=== PATIENT | male | born 1945 | race Caucasian/White ===

== ENCOUNTER 2017-02-21 14:55 | Inpatient (IN) | payer MEDICARE, OTHER ==
[~2017-02-21] VITALS: Ht 170.2 cm; Wt 99.3 kg
[2017-03-04] MEDS ORDERED: METF-382 PO (15:17)
[2017-03-04] MEDS ORDERED: LOSA100T PO (15:17)
[2017-03-04] MEDS ORDERED: CARV12.52 PO (15:17)
[2017-03-04] MEDS ORDERED: AMLO10TA2 PO (15:17)
[2017-03-04] MEDS ORDERED: CHLOR50 PO (15:17)
[2017-03-04] MEDS ORDERED: BUPR100CR PO (15:20)
[2017-03-04] MEDS ORDERED: SYMB80AE INH (15:20)
[2017-03-04] MEDS ORDERED: IPRAAER INH (15:21)
[2017-03-04] MEDS ORDERED: ASPI81TA81 PO (15:28)
[2017-03-04] MEDS ORDERED: TAMS0.4C4 PO (15:28)
[2017-03-04] MEDS ORDERED: CYAN25005 SL (15:28)
[2017-03-04] MEDS ORDERED: MAGN400T PO (15:28)
[2017-03-04] MEDS ORDERED: MULT1TAB46 PO (15:28)
[2017-03-04] MEDS ORDERED: RANI150T PO (15:28)
[2017-03-04] MEDS ORDERED: FLUT50SP EACH NARE (15:28)
[2017-03-04] MEDS ORDERED: VITATAB11 PO (15:28)
[2017-03-04] MEDS ORDERED: OMEP20TA PO (15:28)
--- NOTE | 2017-03-22 08:23 | MH ---
cc: VERONIKA SPARKS M.D. DATE OF ADMISSION 03/22/2017 ADMISSION DIAGNOSIS Lumbar spinal stenosis with instability. HISTORY This patient is a 71-year-old male with significant back pain and radiating leg pain. Investigative studies shows evidence of a high-grade stenosis L3-4, L4-5 associated with a moderate instability at the L3-4 and L4-5 level. Despite conservative care, the patient is painful and symptomatic. He presents for surgical treatment. PAST MEDICAL HISTORY, SOCIAL HISTORY AND FAMILY HISTORY See attached notes. PHYSICAL EXAMINATION This is a 71-year-old male in moderate distress with his back, hip and leg. HEENT: Normocephalic, atraumatic. Pupils equal, round, reactive to light and accommodation. Extraocular motions intact. NECK: Supple. CHEST: Clear. HEART: Regular rate and rhythm. ABDOMEN: Soft and nontender with normoactive bowel sounds. MUSCULOSKELETAL: The thoracolumbar spine has a restricted motion and pain with range of motion. [id number] is positive. Motor examination see attached records. IMPRESSION 1. Lumbar spinal stenosis L3-4 and L4-5. 2. Lumbar instability L3-4 and L4-5. 3. Bilateral lumbosacral radiculopathy. PLAN Bilateral lumbar laminectomy L3-L4 and L4-5 from the left, subtotal facet resection, posterior spinal fusion, posterior spinal segmental instrumentation, posterolateral interbody fusion, interbody cages. CONSENT The risks of surgery including infection, bleeding, loss of motion, continued pain, need for further surgery, neurologic and vascular injury. The patient understands these issues and wishes to press on with surgery as outlined above. MD VIDA Simons/NORM /10:49 PM /8:20 AM
[2017-03-22] MEDS ORDERED: VANCOMYCIN HCL 1000 MG VIAL ONE (09:24)
[2017-03-22] MEDS ORDERED: SODIUM CHLOR 0.9% 250 ML INJ 250 ML ONE (09:24)
[2017-03-22] MEDS ORDERED: METOPROLOL TARTRATE 25 MG TAB PO PRN (09:30)
[2017-03-22] MEDS ORDERED: SODIUM CHLORID 0.9% 500 ML IV PRN (09:30)
[2017-03-22] MEDS ORDERED: LACTATED RINGER'S 1000 ML IV PRN (09:30)
[2017-03-22] MEDS ORDERED: INSULIN HUMAN REGULAR 1,000 UNITS/10 ML VIAL SQ PRN (09:30)
[2017-03-22] MEDS ORDERED: POVIDONE IODINE 5% (ANTISEPSIS KIT) 4 APPLICATIONS EACH NARE PRN (09:30)
[2017-03-22] MEDS ORDERED: CHLORHEXIDINE GLUCONATE 2 % 1 PACK (2 CLOTHS) TOPICAL PRN (09:30)
[2017-03-22 09:31] VITALS: BP 97/58; PULSE 64; RESP 20; TEMP 97.7; O2SAT 99
[2017-03-22] MEDS ORDERED: VANCOMYCIN 1000 MG/NS 250 ML (for <70 kg) IV SCH ×2 (09:45)
[2017-03-22] MEDS ORDERED: POVIDONE IODINE 7.5% SCRUB 118 ML BOTTLE TOPICAL SCH (09:45)
[2017-03-22] MEDS ORDERED: MIDAZOLAM HCL 2 MG/2 ML VIAL ONE (10:38)
[2017-03-22] MEDS ORDERED: ACETAMINOPHEN 1000 MG/100 ML VIAL IV ONE (10:38)
[2017-03-22] MEDS ORDERED: fentaNYL CITRATE 250 MCG/5 ML AMP ONE ×2 (10:39→17:48)
[2017-03-22] MEDS ORDERED: GENTAMICIN SULFATE 80 MG/2 ML VIAL ONE (10:42)
[2017-03-22] MEDS: ceFAZolin 2 GM PREMIX 50 ML IV SCH ×2 (12:53→16:50)
--- NOTE | 2017-03-22 17:28 | RADRPT ---
EXAM DATE/TIME: 03/22/2017 16:52 [place] COMPARISON: No previous studies available for comparison. INDICATIONS : Laminectomy. Fusion of L3-L5. MEDICAL HISTORY : None. SURGICAL HISTORY : None. ENCOUNTER: Initial ACUITY: 1 day PAIN SCORE: Non-responsive. LOCATION: Lumbar spine. FINDINGS: Lower lumbar spine fusion hardware is noted from L3 through L5 and appears to be in good position. CONCLUSION: Status post lower lumbar spine fusion from L3 through L5. Arden Shore MD on March 22, 2017 at 17:22 Board Certified Radiologist. This report was verified electronically.
[2017-03-22] MEDS ORDERED: DEXTROSE 50% IN WATER 50 ML VIAL(D50) IV PRN (17:30)
[2017-03-22] MEDS ORDERED: ONDANSETRON HCL 4 MG/2 ML VIAL IV PRN (17:30)
[2017-03-22] MEDS ORDERED: ALUMINUM/MAGNESIUM/SIMETH 30 ML CUP PO PRN (17:30)
[2017-03-22] MEDS ORDERED: MORPHINE SULFATE 30 MG/30 ML PCA IV SCH (17:30)
[2017-03-22] MEDS ORDERED: BISACODYL 10 MG SUPP RECTAL PRN (17:30)
[2017-03-22] MEDS ORDERED: NALOXONE HCL 0.4 MG/ML AMP IV PRN (17:30)
[2017-03-22] MEDS ORDERED: GLUCAGON 1 MG/ML VIAL IM/SQ PRN (17:30)
[2017-03-22] MEDS ORDERED: Post-op Orders (for Pharmacy) MISC XX ONE (17:30)
[2017-03-22] MEDS ORDERED: SODIUM CHLORIDE 0.9% FLUSH 5 ML FLUSH IVF PRN (17:30)
[2017-03-22] MEDS ORDERED: MORPHINE SULFATE 8 MG/ML INJ IV PUSH PRN (17:30)
[2017-03-22] MEDS ORDERED: ACETAMINOPHEN/HYDROcodone 325 MG/7.5 MG TAB PO PRN (17:30)
[2017-03-22] MEDS ORDERED: SOD PHOSPHATE/SOD BIPHOSPHATE (ADULT) ENEMA 133ML PR PRN (17:30)
--- NOTE | 2017-03-22 17:31 | PD.OP ---
cc: Nicolas Thompson MD Operative Report Date of Surgery: Mar 22, 2017 Preoperative Diagnosis: Lumbar spinal stenosis L3 4 and L4 5. Spondylolisthesis, L4 5, grade 1. Retrolisthesis L3 4, grade 1. 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 Lumbar radiculitis Postoperative Diagnosis: Same Procedure: Bilateral lumbar laminectomy from the left L3, L4 with lateral recess decompression and left subtotal facet resection. Bilateral lumbar laminectomy from the left L4, L5 with lateral recess decompression and subtotal facet resection L4 5 left. Total discectomy L3 4 and L4 5. Posterior spinal fusion L3 to L5. Posterior lateral interbody fusion L34 and L4 5. Placement of interbody cages L3 4 and L4 5. Posterior spinal segmental instrumentation L3 to L5. Major bone grafting of the lumbar spine Anesthesia: Gen. Surgeon: Nicolas Thompson Cloth Finishing Range Operator(s): JAZZY Pond Operation and Findings: EBL: 200 ml NOTE: Kenyatta Pond PA-C was present for the entire surgical procedure as my assistant superintendent for curriculum. In my medical opinion her skill and care was necessary for proper management of this patient INDICATIONS: This patient is a 71-year-old white male with neurologic claudication and evidence of severe discogenic low back pain related to severe discogenic changes L3 4 and a spondylolisthesis at L4 5. The patient has had exhaustive care for over 2 years. He has had conservative care including medications, braces, physical therapy, multiple injections. Despite conservative care the patient is painful and symptomatic. He now presents for surgical treatment. INSTRUMENTATION: Spine ada, Casper Ana PROCEDURE: The patient brought to the operating room and anesthetized the supine position. The patient positioned prone on the Jered frame on the Faisal table. All pressure points are protected. The back was scrubbed with alcohol followed by Hibiclens followed by ChloraPrep and draped sterilely and antibiotics were given within a routine time window. A timeout was done. Lateral radiographic images used to identify the proper level for the procedure. Compared care for the preoperative studies. Skin markings were made anticipating surgical treatment. A left paramedian incision was made. The lamina and facet joint was exposed. We used a dilating retractor which was positioned over this region. The L3 4 level was approached first. The microscope was rolled into the field for visualization. A high-speed bur was used to take the lamina down and doing a subtotal facet resection. The exiting and crossing nerve roots were completely decompressed. A total discectomy was accomplished. The disc space was prepared. All cartilaginous material from the disc space was removed. A combination of demineralized bone matrix and Nucel stem cells were mixed together on the back table.. These were injected into the disc space. The cage was then placed according to nuclear spectroscopist's recommendation and deployed. Position was satisfactory. Additional bone graft was placed into the disc space. We moved to the L4 5 level. A paramedian incision was made and a midline fascial incision was made. A dilating system was placed down to the interlaminar space and held provisionally to the side of the table. A high- speed bur under the microscope was used to perform a bilateral laminectomy from the that side. A lateral recess decompression bilaterally was accomplished. A subtotal facet resection was accomplished. The crossing and exiting nerve roots were completely decompressed. An annulotomy was performed. A total discectomy was accomplished. All of the disc was removed from the disc space. The disc was then prepared for a cage. The bone graft was placed into the disc space between the operative level. A Stax cage placed close to midline at that level. There was no complication. The alignment was satisfactory. No significant bleeding was encountered. The wound was irrigated copiously. The fascia was closed with interrupted 0 Vicryl suture. The outer edge of the facet joint was identified and prepared. Under fluoroscopic images, a bur was used to gain entrance into the pedicle followed by placement of a blunt probe, an awl and placement of proper length screws. Each screw was charged with electric current there are no abnormal potentials registered in either lower extremity. A proper length armida was fitted and attached and tightened according to nuclear spectroscopist's recommendation. We used the dynamic nature of this system to allow reduction of the spondylolisthesis with normal contouring and alignment of the lumbar spine. The wound was irrigated copiously. Bone grafting was placed along the lateral gutter in the region of the transverse process across this level. This was closed in layers with #1 Vicryl, 2-0 Vicryl and running intradermal 3-0 Vicryl followed by Steri-Strips and benzoin. On the contralateral side a separate exposure was made. The outer edge of the facet joints were identified. A bur was used to gain entrance into the pedicle followed by placement of a probe and proper length screws. Each screw was charged with electric current and no abnormal potentials registered in either lower extremity. The wound was irrigated copiously. Bone graft placed along the transverse process across this level. It was closed in layers using #1 Vicryl, 2-0 Vicryl and running intradermal 3-0 Vicryl followed by Steri-Strips and benzoin. Intraoperative radiographs were obtained. No complication was appreciated. The patient had a sterile dressing applied. The patient was awakened and taken to recovery room in satisfactory condition. FINDINGS: There was a high-grade stenosis at both levels. There was a significant left-sided foraminal stenosis worse at L3 4 and L4 5. Able to obtain satisfactory alignment and reconstruction the spine. There was no comp location that was appreciated. Nicolas Thompson MD Mar 22, 2017 17:30
[2017-03-22] MEDS ORDERED: HYDR-3288 PO (17:32)
[2017-03-22] MEDS ORDERED: MORPHINE SULFATE 30 MG/30 ML PCA ONE (17:34)
[2017-03-22] MEDS ORDERED: DO NOT ADM ANY ANTICOAGULANT DRUGS PRN (17:38)
[2017-03-22] MEDS: LACTATED RINGER'S 1000 ML INJ 1,000 ML IV SCH (17:45)
[2017-03-22] MEDS: buPROPion HCL 100 MG SUSTAINED RELEASE TAB PO SCH (18:00)
[2017-03-22] MEDS ORDERED: NON-FORMULARY DRUG (Ipratropium-Albuterol Inh (Combivent Respimat Inh) 1 PUFF) INH SCH (18:00)
[2017-03-22] MEDS ORDERED: *morphine SULFATE 8 MG/ML PERIprocedure ONLY ONE (18:07)
[2017-03-22] MEDS: CARVEDILOL 12.5 MG TAB PO SCH (20:31)
[2017-03-22] MEDS: INSULIN NovoLIN REGULAR SUPPLEMENTAL SCALE SQ SCH (20:31)
[2017-03-22] MEDS: SODIUM CHLORIDE 0.9% FLUSH 5 ML FLUSH IVF SCH (20:56)
[2017-03-22] MEDS: ALBUTEROL SULFATE 90 MCG/ACT HFA 18 GM INHALER INH SCH (20:56)
[2017-03-22] MEDS: BUDESONIDE-FORMOTEROL 80/4.5 MCG INHALER INH SCH (20:56)
[2017-03-22] MEDS: TAMSULOSIN HCL 0.4 MG CAP PO SCH (20:57)
[2017-03-22] MEDS: metFORMIN HCL 500 MG TAB PO SCH (20:57)
[2017-03-22] MEDS: FAMOTIDINE 20 MG TAB PO SCH (20:57)
[2017-03-22] MEDS ORDERED: ZOLPIDEM TARTRATE 5 MG TAB PO PRN (21:00)
[2017-03-22 21:30] VITALS: BP 123/64; PULSE 67; RESP 17; TEMP 96.5; O2SAT 98
[2017-03-22] MEDS: PCA - TOTAL MG MORPHINE DELIVERED PER SHIFT SCH (22:00)
[2017-03-23 04:30] VITALS: BP 123/66; PULSE 70; RESP 17; TEMP 97.9; O2SAT 100
[2017-03-23] MEDS: PCA - TOTAL MG MORPHINE DELIVERED PER SHIFT SCH (06:00)
[2017-03-23] MEDS: LACTATED RINGER'S 1000 ML INJ 1,000 ML IV SCH ×2 (06:30→17:01)
[2017-03-23] MEDS: INSULIN NovoLIN REGULAR SUPPLEMENTAL SCALE SQ SCH ×4 (06:51→20:28)
[2017-03-23 08:00] VITALS: BP 111/60; PULSE 75; RESP 20; TEMP 98.7; O2SAT 97
[2017-03-23] MEDS ORDERED: Chlorthalidone 50 MG PO SCH (09:00)
[2017-03-23] MEDS: SODIUM CHLORIDE 0.9% FLUSH 5 ML FLUSH IVF SCH ×2 (09:00→20:23)
[2017-03-23] MEDS: CARVEDILOL 12.5 MG TAB PO SCH ×2 (09:56→20:23)
[2017-03-23] MEDS: PANTOPRAZOLE SOD 20 MG DELAYED RELEASE TAB PO SCH (09:57)
[2017-03-23] MEDS: buPROPion HCL 100 MG SUSTAINED RELEASE TAB PO SCH ×3 (09:57→16:50)
[2017-03-23] MEDS: LOSARTAN 50 MG TAB PO SCH (09:57)
[2017-03-23] MEDS: metFORMIN HCL 500 MG TAB PO SCH ×2 (09:57→20:23)
[2017-03-23] MEDS: amLODIPine BESYLATE 5 MG TAB PO SCH (09:57)
[2017-03-23] MEDS: ACETAMINOPHEN/HYDROcodone 325 MG/7.5 MG TAB PO PRN ×3 (09:59→18:52)
[2017-03-23] MEDS: TIOTROPIUM BROMIDE 18 MCG INH INH SCH (11:44)
[2017-03-23] MEDS: BUDESONIDE-FORMOTEROL 80/4.5 MCG INHALER INH SCH ×2 (11:44→20:21)
[2017-03-23] MEDS: ALBUTEROL SULFATE 90 MCG/ACT HFA 18 GM INHALER INH SCH ×4 (11:44→20:23)
[2017-03-23 12:00] VITALS: BP 139/73; PULSE 88; RESP 20; TEMP 97.7; O2SAT 96
[2017-03-23 12:55] LABS: HEMATOCRIT 33.6 % (39.0-51.0); REVIEW FLAG FINAL
--- NOTE | 2017-03-23 13:12 | HHI.DCPOC ---
Discharge Care Plan Diagnosis: (1) Lumbar spinal stenosis (2) Lumbar spine instability (3) Degeneration of intervertebral disc of lumbar region Your Health Problems Are: Incision/Drains Swelling Goals to Promote Your Health * To prevent worsening of your condition and complications * To maintain your health at the optimal level Directions to Meet Your Goals Take your medications as prescribed Follow your dietary instruction Follow activity as directed Keep your appointments as scheduled Take your immunizations and boosters as scheduled If your symptoms worsen call your PCP, if no PCP go to Urgent Care Center or Emergency Room Smoking is Dangerous to Your Health. Avoid second hand smoke Call the 24-hour hour crisis hotline for domestic abuse at Camelia Beverly Mar 23, 2017 13:12
--- NOTE | 2017-03-23 13:12 | HHI.FF ---
Face to Face Verification Diagnosis: (1) Lumbar spine instability (2) Lumbar spinal stenosis (3) Degeneration of intervertebral disc of lumbar region Physical Therapy Gait training, Safety evaluation, Transfer training, bed to chair S/P Spinal Fusion: Gait training with walker, Weight bearing as tolerated, No twisting of torso, No bending Additional Instructions PT 4 days/wk for 1 week. WBAT. out of bed with walker. Gait training. Nursing RN Days per Week: 4 x Week(s): 1 Dressing Changes: Daily dressing change, 4x4s, Coverderm/Primapore Additional Instructions Dry dressing changes daily, alcohol and coverderm. Ok to shower pod#6 if clean and dry. Wait 48 hours if still draining. I have [facility]. My clinical findings support the need for the requested home health care services because: Limited ability to care for self High risk of falls I certify that my clinical findings support that this patient is homebound because: Post-op weakness Unsteady gait/balance Camelia Beverly Mar 23, 2017 13:12
--- NOTE | 2017-03-23 13:15 | PD.ORT.PN ---
Subjective Subjective Remarks Laying in bed but states he is 'doing fine'. He has low back pain and struggles with transitioning in and out of bed. He was able to walk once he got up with the walker. he denies any new leg pain. No CP or SOB. Urinating well. Objective Vitals Vital Signs Date Time Temp Pulse Resp B/P Pulse Ox O2 Delivery O2 Flow Rate FiO2 03/23/17 12:00 97.7 88 20 139/73 96 03/23/17 08:00 98.7 75 20 111/60 97 03/23/17 04:30 97.9 70 17 123/66 100 03/22/17 21:30 96.5 67 17 123/64 98 03/22/17 21:18 Nasal Cannula 2.00 03/22/17 20:57 66 12 99/48 100 Nasal Cannula 2 03/22/17 19:00 67 12 106/55 98 Nasal Cannula 2 03/22/17 18:30 67 12 107/52 96 Nasal Cannula 2 03/22/17 18:15 67 12 105/53 98 Nasal Cannula 2 03/22/17 18:00 67 12 95/50 97 Nasal Cannula 2 03/22/17 17:45 67 15 112/59 97 Nasal Cannula 2 03/22/17 17:45 15 03/22/17 17:40 97.5 70 14 120/56 98 Nasal Cannula 2 I/O 03/22/17 03/22/17 03/22/17 03/23/17 03/23/17 03/23/17 07:00 15:00 23:00 07:00 15:00 23:00 Intake Total 2903 ml 935 ml Output Total 1025 ml 1200 ml Balance 1878 ml -265 ml Intake Oral 460 ml 240 ml IV Total 1193 ml 695 ml Other 1250 ml Output Urine Total 825 ml 1200 ml Estimated Blood Loss 200 ml # Voids 1 0 # Bowel Movements 0 0 Result Diagram: 03/23/17 1145 Objective Remarks Laying in bed at bedside NAD VSS L/S Dressing c/d/i, mild SS drainage, mild spasms, mild warmth, no erythema +motor at / ehl bilat, +sens, +nvi Neg homans bilat Assessment & Plan Ortho Post Op Day #: 1 Problem List: Assessment and Plan pod#1 s/p Lami/Fusion L3-L5 Ortho stable. Doing well. Pain controlled. concerned about d/c home today due to struggle w transitions. PO pain meds as needed. Dry dressing changes daily. Ice low back. OOB w brace for 10-12 weeks. Likely will d/c home tomorrow. F2F written. Pt states he already has DME. Camelia Beverly Mar 23, 2017 13:14
[2017-03-23 16:57] VITALS: BP 105/64; PULSE 71; RESP 20; TEMP 98.7; O2SAT 98
[2017-03-23 19:00] VITALS: BP 117/48; PULSE 74; RESP 16; TEMP 99; O2SAT 98
[2017-03-23] MEDS: DOCUSATE SODIUM 100 MG CAP PO SCH (20:23)
[2017-03-23] MEDS: TAMSULOSIN HCL 0.4 MG CAP PO SCH (20:23)
[2017-03-23] MEDS: FAMOTIDINE 20 MG TAB PO SCH (20:23)
[2017-03-24] VITALS: BP 122/63; PULSE 77; RESP 18; TEMP 98.5; O2SAT 96
[2017-03-24 04:00] VITALS: BP 111/62; PULSE 70; RESP 16; TEMP 98.6; O2SAT 96
[2017-03-24] MEDS: INSULIN NovoLIN REGULAR SUPPLEMENTAL SCALE SQ SCH ×2 (05:42→11:00)
[2017-03-24] MEDS: ACETAMINOPHEN/HYDROcodone 325 MG/7.5 MG TAB PO PRN ×3 (05:43→14:46)
[2017-03-24] MEDS: LACTATED RINGER'S 1000 ML INJ 1,000 ML IV SCH (07:30)
[2017-03-24 08:00] VITALS: BP 113/59; PULSE 70; RESP 18; TEMP 99.1; O2SAT 95
--- NOTE | 2017-03-24 08:37 | HHI.DS ---
Discharge Summary Admission Date Mar 22, 2017 at 08:28 Discharge Date: Mar 24, 2017 Admitting Diagnosis see below Diagnosis: (1) Lumbar spinal stenosis Diagnosis: Principal (2) Lumbar spine instability Diagnosis: Principal (3) Degeneration of intervertebral disc of lumbar region Diagnosis: Principal Procedures Lumbar laminectomy L34, L45; Posterior lumbar fusion with segmental instrumentation and interbody cages L3-L5, bone graft. Brief History This is a 71 year old male patient with a history of mild low back pain for many years but severe low back pain for the last 2 years. He sought out medical treatment. He was referred to physical therapy but did not improve. He was eventually referred to pain management and underwent multiple epidural steroid injections of his lumbar spine. Over time he was able to get less and less relief even when utilizing his back brace. Updated imaging studies were performed. He was found to have spinal stenosis L34 and L45 but also had substantial facet arthritis. Facet injections were ordered but he was only able to get temporary relief. Eventually surgical treatment was recommended in the form of lumbar laminectomy and fusion L34 and L45. He elected to proceed forward and presents at this time for the above. CBC/BMP: 03/23/17 1145 Significant Findings Laboratory Tests Test 03/23/17 11:45 Hemoglobin 11.4 GM/DL (13.0-17.0) Hematocrit 33.6 % (39.0-51.0) PE at Discharge Laying in bed at bedside NAD VSS L/S Dressing c/d/i, mild SS drainage, mild spasms, mild warmth, no erythema +motor at / ehl bilat, +sens, +nvi Neg homans bilat Hospital Course Surgical treatment was performed on the day of admission without complication. He recovered well in PACU and was transferred to the orthopaedic floor. Pain was controlled with IV and oral medications. He was compliant with physical therapy and all precautions including use of his lumbar brace. After 2 days he was found to be stable and discharged home with home health care. He was instructed to continue therapy, to continue his brace for an additional 10-12 weeks and to pursue a high fiber diet for 3-5 days Pt Condition on Discharge: Stable Discharge Disposition: Disch w/ Home Health Serv Discharge Instructions Diet Instructions: Diabetic Diet, High Fiber Diet Activities You Can Perform: Weight Bearing as Oralia, See Additionl Instruction Activities to Avoid: Strenuous Activity Additional Activity Instruc.: Out of bed with brace, full-time New Medications: Hydrocodone-Acetaminophen (Touchet) 7.5-325 mg Tab 1 TAB PO Q4H PRN PAIN #50 Ref 0 TAB Continued Medications: Amlodipine (Amlodipine) 10 Mg Tab 5 MG PO DAILY Blood Pressure Management #[address] Ref [address] (Aspir-81) 81 Mg Tabdr 1 TAB PO DAILY B-Complex Vitamins (Vitamin B Complex) 1 Tab 1 TAB PO DAILY Budesonide-Formoterol Inh (Symbicort Inh) 80-4.5 Mcg/Act Aero 2 PUFF INH Q12HR Asthma Management #1 Ref 0 INHALER Carvedilol (Carvedilol) 12.5 Mg Tab 12.5 MG PO BID #60 Ref 0 TAB Chlorthalidone (Chlorthalidone) 50 Mg Tab 50 MG PO DAILY Ref 0 TAB Cyanocobalamin (Vitamin B-12) (Vitamin B12) 2,500 Mcg Tab.chew 5000 MCG SL DAILY Fluticasone Nasal Perry (Fluticasone Nasal Perry) 50 Mcg/Act Naspr 50 MCG EACH NARE BID 50 mcg/spray 2 SPRAYS EACH NARES BID Allergy Management #1 Ref 0 BOTTLE Ipratropium-Albuterol Inh (Combivent Respimat Inh) 20-100 Detention/Act Aero 1 PUFF INH QID Asthma Management #1 Ref 0 INHALER Losartan (Losartan) 100 Mg Tab 100 MG PO DAILY Blood Pressure Management #30 Ref 0 TAB Magnesium Oxide (Magnesium Oxide) 400 Mg Tab 1 TAB PO DAILY Metformin ER (Metformin ER) 1,000 Mg Mallory 1000 MG PO BID With evening meal Blood Sugar Management #30 Ref 0 TAB Multiple Vitamin (Multi Vitamin Daily) 1 Tab Tab 1 TAB PO DAILY Omeprazole (Omeprazole) 20 Mg Tab 20 MG PO DAILY #30 Ref 0 TAB Ranitidine (Ranitidine) 150 Mg Tab 150 MG PO HS Heartburn Management #30 Ref 0 TAB Tamsulosin (Tamsulosin) 0.4 Mg Cap 0.4 MG PO HS Manage Prostate Problems #30 Ref 0 CAP Camelia Beverly Mar 24, 2017 08:36
--- NOTE | 2017-03-24 08:52 | PD.ORT.PN ---
Subjective Subjective Remarks Laying in bed but doing well. Uneventful last night. No new problems. Back is still painful but meds are helping. he feels as though he is ready to go home today. he denies any new leg pain. No CP or SOB. Urinating well. Objective Vitals Vital Signs Date Time Temp Pulse Resp B/P Pulse Ox O2 Delivery O2 Flow Rate FiO2 03/24/17 04:00 98.6 70 16 111/62 96 03/24/17 00:00 98.5 77 18 122/63 96 03/23/17 19:00 99.0 74 16 117/48 98 03/23/17 16:57 98.7 71 20 105/64 98 03/23/17 12:00 97.7 88 20 139/73 96 I/O 03/23/17 03/23/17 03/23/17 03/24/17 03/24/17 03/24/17 07:00 15:00 23:00 07:00 15:00 23:00 Intake Total 935 ml 340 ml 480 ml 480 ml Output Total 1200 ml 600 ml 500 ml Balance -265 ml 340 ml -120 ml -20 ml Intake Oral 240 ml 340 ml 480 ml 480 ml IV Total 695 ml Output Urine Total 1200 ml 600 ml 500 ml # Voids 3 0 # Bowel Movements 0 0 0 0 Result Diagram: 03/23/17 1145 Procedures Lumbar laminectomy L34, L45; Posterior lumbar fusion with segmental instrumentation and interbody cages L3-L5, bone graft. Objective Remarks Laying in bed at bedside NAD VSS L/S Dressing c/d/i, mod SS drainage left incision only, mild warmth, no erythema +motor at / ehl bilat, +sens, +nvi Neg homans bilat Assessment & Plan Ortho Post Op Day #: 2 Problem List: (1) Lumbar spinal stenosis (2) Lumbar spine instability (3) Degeneration of intervertebral disc of lumbar region Assessment and Plan pod#2 s/p Lami/Fusion L3-L5 Ortho stable. Ok to d/c home today. He states Dr. Nieves already set up C. PO pain meds as needed. Dry dressing change today before d/c then daily. Ice low back. OOB w brace for 10-12 weeks. F/U in 2 weeks as scheduled. F2F written. Pt states he already has DME. Camelia Beverly Mar 24, 2017 08:52
[2017-03-24] MEDS: BUDESONIDE-FORMOTEROL 80/4.5 MCG INHALER INH SCH (09:00)
[2017-03-24] MEDS: TIOTROPIUM BROMIDE 18 MCG INH INH SCH (09:00)
[2017-03-24] MEDS: SODIUM CHLORIDE 0.9% FLUSH 5 ML FLUSH IVF SCH (09:00)
[2017-03-24] MEDS: metFORMIN HCL 500 MG TAB PO SCH (10:07)
[2017-03-24] MEDS: LOSARTAN 50 MG TAB PO SCH (10:07)
[2017-03-24] MEDS: buPROPion HCL 100 MG SUSTAINED RELEASE TAB PO SCH ×2 (10:07→12:03)
[2017-03-24] MEDS: amLODIPine BESYLATE 5 MG TAB PO SCH (10:07)
[2017-03-24] MEDS: CARVEDILOL 12.5 MG TAB PO SCH (10:08)
[2017-03-24] MEDS: DOCUSATE SODIUM 100 MG CAP PO SCH (10:08)
[2017-03-24] MEDS: PANTOPRAZOLE SOD 20 MG DELAYED RELEASE TAB PO SCH (10:08)
[2017-03-24] MEDS: ALBUTEROL SULFATE 90 MCG/ACT HFA 18 GM INHALER INH SCH ×2 (10:11→12:04)
[2017-03-24 12:00] VITALS: BP 104/51; PULSE 75; RESP 18; TEMP 98.2; O2SAT 96
== END 2017-03-24 16:18 | disposition home health service (06) | DRG 460 ==
LOC: HSDI 03-22 08:28 → N06B 03-22 21:28
PROVIDERS: ADMIT Orthopaedic Surgery Orthopaedic Surgery of the Spine; ATTEND Orthopaedic Surgery Orthopaedic Surgery of the Spine
PROC: 0ST20ZZ Resection of Lumbar Vertebral Disc, Open Approach (ICD-10-PCS; 2017-03-22)
PROC: 0SG10AJ Fusion of 2 or more Lumbar Vertebral Joints with Interbody Fusion Device, Posterior Approach, Anterior Column, Open Approach (ICD-10-PCS; principal; 2017-03-22 12:00)
DX: M48.06 Spinal stenosis, lumbar region (principal); M53.2X6 Spinal instabilities, lumbar region; M43.16 Spondylolisthesis, lumbar region; M51.16 Intervertebral disc disorders with radiculopathy, lumbar region
CPT/HCPCS: 72100; 76000; 82948; 85014; 85018; 86850; 86900; 86901; 94150; J0131; J0690; J1580; J2250; J2270; J3010; J3370; J7050; J7120

== ENCOUNTER → 2017-03-04 | Outpatient (CLI) | payer MEDICARE, OTHER ==
[~2017-03-04] MED LIST: AMLO10 PO; AMLO10TA2 PO; ASPI300S PO; ASPI81TA81 PO; BUPR100CR PO; CARV12.52 PO; CHLO50TA PO; CHLOR50 PO; CYAN25005 SL; ENOX40P SQ; FLUT50SP EACH NARE; GLIM1TAB PO; GLUCTAB PO; HYDR-3288 PO; IPRAAER INH; LORTA5 PO; LOSA100T PO; MAGN400T PO; METF-382 PO; MULT1TAB46 PO; OMEG12002 PO; OMEP20TA PO; RANI150T PO; SYMB80AE INH; TAB-TAB PO; TAMS0.4C4 PO; VITATAB11 PO; [UNRECOGNIZED DRUG - CODE] PO
[2017-03-04 12:59] LABS: AUTOMATED NEUTROPHIL # 3.2 TH/MM3 (1.8-7.7); BASOPHIL % 0.1 % (0.0-2.0); EOSINOPHIL # 0.1 TH/MM3 (0-0.4); EOSINOPHIL % 2.1 % (0.0-4.0); HEMATOCRIT 38.1 % (39.0-51.0); HEMO FLAGS DIFF FINAL; LYMPH % 24.3 % (9.0-44.0); LYMPHOCYTE # 1.3 TH/MM3 (1.0-4.8); MEAN CELL VOLUME 93.3 FL (80.0-100.0); MEAN CORPUSCULAR HEMOGLOBIN 30.7 PG (27.0-34.0); MEAN CORPUSCULAR HGB CONC 32.9 % (32.0-36.0); NEUT % 59.5 % (16.0-70.0); PLATELET COUNT 170 TH/MM3 (150-450); RED BLOOD COUNT 4.09 MIL/MM3 (4.50-5.90); RED CELL DISTRIBUTION WIDTH 13.6 % (11.6-17.2); WHITE BLOOD COUNT 5.4 TH/MM3 (4.0-11.0)
[2017-03-04 13:00] LABS: BLOOD, URINE NEG (NEG); COMMENT (UR) CULT NOT INDICATED; CULTURE IF INDICATED CULT NOT INDICATED; GLUCOSE,URINE NEG (NEG); KETONE, URINE NEG (NEG); MUCUS URINE FEW /lpf (OCC); NITRITE,URINE NEG (NEG); PH, URINE 7.5 (5.0-8.5); URINE COLOR YELLOW (YELLW/STRAW)
[2017-03-04 13:07] LABS: APTT (PATIENT) 27.3 SEC (24.3-30.1); PROTHROMBIN TIME - PATIENT 11.1 SEC (9.8-11.6)
--- NOTE | 2017-03-05 16:55 | EKG ---
Date Performed: 03/04/2017 Time Performed: 12:41:13 PTAGE: 71 years EKG: Sinus rhythm LOW QRS VOLTAGE IN EXTREMITY LEADS POSSIBLE INFERIOR INFARCT BORDERLINE ECG NO PREVIOUS TRACING DOCTOR: Aroldo Smith Interpretating Date/Time 03/05/2017 16:53:58
== END ==
LOC: CPRE 12:10
PROVIDERS: ATTEND Orthopaedic Surgery Orthopaedic Surgery of the Spine
DX: Z01.810 Encounter for preprocedural cardiovascular examination (principal); Z01.812 Encounter for preprocedural laboratory examination; M48.06 Spinal stenosis, lumbar region; M53.2X6 Spinal instabilities, lumbar region; R94.31 Abnormal electrocardiogram [ECG] [EKG]
CPT/HCPCS: 36415; 81001; 85025; 85610; 85730; 93005